=== PATIENT | male | born 1995 | race Caucasian/White ===

== ENCOUNTER 2018-09-12 17:05 | Emergency (ER) | payer OTHER ==
[2018-09-12] MEDS ORDERED: ONDANSETRON 4 MG (ODT) TAB ONE (19:40)
--- NOTE | 2018-09-12 20:50 | ER ---
Nurse's Notes [facility] Name: Jovanny Martin Age: 23 yrs Sex: Male : 1995 Arrival Date: 09/12/2018 Time: 17:06 Bed 19 Private MD: Diagnosis: Vomiting Presentation: 09/12 17:33 Presenting complaint: Patient states: 4 pm today, i ate fast food from [employer] and after hj that i threw up and noticed blood on my vomit and i feel like lightheaded and about to pass out; report nausea; denies abdominal pain and diarrhea;. Transition of care: patient was not received from another setting of care. Onset of symptoms was September 12, 2018. Risk Assessment: Do you want to hurt yourself or someone else? Patient reports no desire to harm self or others. Initial Sepsis Screen: Does the patient meet any 2 criteria? No. Patient's initial sepsis screen is negative. Does the patient have a suspected source of infection? No. Patient's initial sepsis screen is negative. Care prior to arrival: None. 17:33 Method Of Arrival: Ambulatory 17:33 Acuity: KELSEY 3 hj Triage Assessment: 17:36 General: Appears in no apparent distress. uncomfortable, Behavior is calm, cooperative, hj appropriate for age. Pain: Denies pain. GI: Reports nausea, vomiting. Historical: - Allergies: 17:35 No Known Allergies; hj - Home Meds: 17:35 None [Active]; hj - PMHx: 17:35 None; hj - PSHx: 17:35 None; hj - Immunization history:: Adult Immunizations not up to date. - Social history:: Smoking status: Patient/guardian denies using tobacco, Patient uses alcohol. - Ebola Screening: : Patient negative for fever greater than or equal to 101.5 degrees Fahrenheit, and additional compatible Ebola Virus Disease symptoms Patient denies exposure to infectious person Patient denies travel to an Ebola-affected area in the 21 days before illness onset. Screenin:36 Abuse screen: Denies threats or abuse. Denies injuries from another. Nutritional hj screening: No deficits noted. Tuberculosis screening: No symptoms or risk factors identified. Fall Risk None identified. Assessment: 17:36 GI: Abdomen is non-distended. hj 19:31 General: Appears in no apparent distress. Behavior is calm, cooperative. Pain: Denies ed1 pain. Neuro: Level of Consciousness is awake, alert, obeys commands, Oriented to person, place, time, situation. Cardiovascular: Denies chest pain, Heart tones S1 S2 present. Respiratory: Airway is patent Respiratory effort is even, unlabored, Respiratory pattern is regular, symmetrical, Breath sounds are clear bilaterally. GI: Abdomen is non-distended, Bowel sounds present X 4 quads. Abd is soft and non tender X 4 quads. Reports nausea, vomiting X1 [employer] Patient currently denies abdominal pain, diarrhea. : No signs and/or symptoms were reported regarding the genitourinary system. EENT: No signs and/or symptoms were reported regarding the EENT system. Derm: Skin is intact, is healthy with good turgor, Skin is dry, Skin is normal, Skin temperature is warm. Musculoskeletal: Circulation, motion, and sensation intact. Range of motion: intact in all extremities. 20:21 Reassessment: Patient appears in no apparent distress at this time. Patient and/or ed1 family updated on plan of care and expected duration. Pain level reassessed. Patient is alert, oriented x 3, equal unlabored respirations, skin warm/dry/pink. Patient denies pain at this time. Patient states feeling better. Patient states symptoms have improved. GI: Patient currently denies nausea. Vital Signs: 17:36 BP 128 / 69; Pulse 99; Resp 18; Temp 98.2(TE); Pulse Ox 99% on R/A; Weight 115.67 kg; hj Height 6 ft. 0 in. (182.88 cm); Pain 0/10; 19:31 BP 124 / 68; Pulse 81; Resp 19; Pulse Ox 100% on R/A; Pain 0/10; ed1 17:36 Body Mass Index 34.59 (115.67 kg, 182.88 cm) ED Course: 17:06 Patient arrived in ED. as 17:35 Triage completed. 17:36 Arm band placed on right wrist. 17:36 Patient has correct armband on for positive identification. Bed in low position. Call light in reach. Side rails up X 1. Adult w/ patient. 19:05 Roxy Scott, KHADRA is Primary Nurse. ed1 19:07 Piter Perkins PA is PHCP. [facility] 19:07 Jorge Dockery MD is Attending Physician. [facility] 19:31 PO fluids given. ed1 20:47 Mendoza Miller MD is Attending Physician. [facility] 20:49 Dustin Grissom MD is Referral Physician. [facility] 20:49 Lea Stringer MD is Referral Physician. [facility] 20:49 Ugo Walter MD is Referral Physician. jmm 20:59 No provider procedures requiring assistance completed. Patient did not have IV access ed1 during this emergency room visit. Administered Medications: 19:30 Drug: Zofran 4 mg Route: PO; ed1 21:00 Follow up: Response: No adverse reaction; Nausea is decreased ed1 Outcome: 20:49 Discharge ordered by MD. [facility] 20:59 Discharged to home ambulatory, with family. ed1 20:59 Condition: good 20:59 Discharge instructions given to patient, Instructed on discharge instructions, follow up and referral plans. medication usage, Demonstrated understanding of instructions, follow-up care, medications, Prescriptions given X 3. 21:00 Patient left the ED. ed1 Signatures: Piter Perkins PA PA [facility] Liliam Feldman Erika, RN RN ed1 Eduar Hall, RN RN hj Corrections: (The following items were deleted from the chart) 17:38 17:36 Pulse 99bpm; Resp 18bpm; Pulse Ox 99% RA; Temp 98.2F Temporal; 115.67 kg; Height hj 6 ft. 0 in.; BMI: 34.5; Pain 0/10; hj 17:39 17:36 Pulse 99bpm; Resp 18bpm; Pulse Ox 99% RA; Temp 98.2F Temporal; 115.67 kg; Height hj 6 ft. 0 in.; BMI: 34.5; Pain 0/10; hj
--- NOTE | 2018-09-12 20:50 | EDPHYS ---
Physician Documentation [facility] Name: Jovanny Martin Age: 23 yrs Sex: Male : 1995 Arrival Date: 09/12/2018 Time: 17:06 Bed 19 Private MD: ED Physician Mendoza Miller HPI: 09/12 19:25 This 23 yrs old Male presents to ER via Ambulatory with complaints of jmm Vomiting. 19:25 The patient presents to the emergency department with nausea, vomiting. Onset: The jmm symptoms/episode began/occurred acutely, today. Possible causes: unknown. This is a 23 year old male with no chronic medical conditions that presents to the ED with complaints of vomiting with blood. Patient states symptoms occurred earlier today after eating fast food. Patient denies abdominal pain. Patient denies heavy ETOH use. Patient states vomiting 3 times with blood.. Historical: - Allergies: 17:35 No Known Allergies; hj - Home Meds: 17:35 None [Active]; hj - PMHx: 17:35 None; hj - PSHx: 17:35 None; hj - Immunization history:: Adult Immunizations not up to date. - Social history:: Smoking status: Patient/guardian denies using tobacco, Patient uses alcohol. - Ebola Screening: : Patient negative for fever greater than or equal to 101.5 degrees Fahrenheit, and additional compatible Ebola Virus Disease symptoms Patient denies exposure to infectious person Patient denies travel to an Ebola-affected area in the 21 days before illness onset. ROS: 19:25 Constitutional: Negative for fever, chills, and weight loss, Cardiovascular: Negative jmm for chest pain, palpitations, and edema, Respiratory: Negative for shortness of breath, cough, wheezing, and pleuritic chest pain. 19:25 Back: Negative for injury and pain. 19:25 Abdomen/GI: Positive for abdominal pain, nausea and vomiting. 19:25 All other systems are negative. Exam: 19:25 Constitutional: This is a well developed, well nourished patient who is awake, alert, jmm and in no acute distress. Head/Face: atraumatic. Eyes: EOMI, no conjunctival erythema appreciated ENT: Moist Mucus Membranes Neck: Trachea midline, Supple Chest/axilla: Normal chest wall appearance and motion. Cardiovascular: Regular rate and rhythm. No edema appreciated Respiratory: Normal respirations, no respiratory distress appreciated 19:25 Back: Normal ROM Skin: General appearance color normal MS/ Extremity: Moves all extremities, no obvious deformities appreciated, no edema noted to the lower extremities Neuro: Awake and alert, normal gait Psych: Behavior is normal, Mood is normal, Patient is cooperative and pleasant 19:25 ENT: Posterior pharynx: erythema, that is mild. 19:25 Abdomen/GI: Inspection: abdomen appears normal, Bowel sounds: normal, Palpation: abdomen is soft and non-tender, in all quadrants. Vital Signs: 17:36 BP 128 / 69; Pulse 99; Resp 18; Temp 98.2(TE); Pulse Ox 99% on R/A; Weight 115.67 kg; hj Height 6 ft. 0 in. (182.88 cm); Pain 0/10; 19:31 BP 124 / 68; Pulse 81; Resp 19; Pulse Ox 100% on R/A; Pain 0/10; ed1 17:36 Body Mass Index 34.59 (115.67 kg, 182.88 cm) [facility]: 19:25 Patient medically screened. [facility] 20:49 Data reviewed: vital signs, nurses notes. Counseling: I had a detailed discussion with [facility] the patient and/or guardian regarding: the historical points, exam findings, and any diagnostic results supporting the discharge/admit diagnosis, the need for outpatient follow up, to return to the emergency department if symptoms worsen or persist or if there are any questions or concerns that arise at home. 20:49 Data interpreted: Pulse oximetry: on room air is 100 %. Interpretation: normal. [facility] 20:49 Response to treatment: the patient's symptoms have resolved after treatment, and as a [facility] result, I will discharge patient. ED course: The patient's abdomen is soft and non tender to palpation. Patient is alert and non toxic in appearance in the ED. The patient has had no episodes of vomiting in the ED. I do not suspect bowel perforation. Patient tolerates PO in the ED. Family and patient advised to follow up with GI for further evaluation and given strict return precautions is symptoms return. Patient and family understood and agrees with the plan of care. . 09/12 19:25 Order name: PO challenge; Complete Time: 19:33 [facility] Administered Medications: 19:30 Drug: Zofran 4 mg Route: PO; ed1 21:00 Follow up: Response: No adverse reaction; Nausea is decreased ed1 Disposition: 21:27 Co-signature as Attending Physician, Mendoza Miller MD Available for consultation at ps1 all times . Disposition: 09/12/18 20:49 Discharged to Home. Impression: Vomiting. - Condition is Stable. - Discharge Instructions: Nausea and Vomiting, Adult. - Prescriptions for Zofran ODT 4 mg Oral tablet,disintegrating - place 1 tablet by TRANSLINGUAL route every 4-6 hours; 20 tablet. omeprazole 40 mg Oral capsule,delayed release(DR/EC) - take 1 capsule by ORAL route once daily before a meal; 20 capsule. Carafate 1 gram Oral Tablet - take 1 tablet by ORAL route 4 times per day take on an empty stomach, beginning on waking and last dose at bedtime; 100 tablet. - Medication Reconciliation Form, Thank You Letter, Antibiotic Education, Prescription Opioid Use form. - Follow up: Dustin Grissom MD; When: 2 - 3 days; Reason: Recheck today's complaints, Continuance of care, Re-evaluation by your physician. Follow up: Lea Stringer MD; When: 2 - 3 days; Reason: Recheck today's complaints, Continuance of care, Re-evaluation by your physician. Follow up: Ugo Walter MD; When: 2 - 3 days; Reason: Recheck today's complaints, Continuance of care, Re-evaluation by your physician. Signatures: Piter Perkins PA PA jmm Riggs, Erika, RN RN ed1 Eduar Hall RN RN hj Singer, Phillip, MD MD ps1 Corrections: (The following items were deleted from the chart) 21:00 20:49 09/12/2018 20:49 Discharged to Home. Impression: Vomiting. Condition is Stable. ed1 Forms are Medication Reconciliation Form, Thank You Letter, Antibiotic Education, Prescription Opioid Use. Follow up: Dustin Grissom; When: 2 - 3 days; Reason: Recheck today's complaints, Continuance of care, Re-evaluation by your physician. Follow up: Lea Stringer; When: 2 - 3 days; Reason: Recheck today's complaints, Continuance of care, Re-evaluation by your physician. Follow up: Ugo Walter; When: 2 - 3 days; Reason: Recheck today's complaints, Continuance of care, Re-evaluation by your physician. la
== END 2018-09-12 21:00 | disposition home or self-care (01) ==
LOC: ER 17:05
DX: R11.2 Nausea with vomiting, unspecified (principal)
CPT/HCPCS: 99283